=== PATIENT | female | born 1955 | race Caucasian/White ===

== ENCOUNTER 2020-11-10 07:17 | Day surgery (SDC) | payer MEDICARE, OTHER ==
[~2020-11-10] VITALS: Ht 162.6 cm; Wt 77.3 kg
--- NOTE | ~2020-11-10 | OP ---
PATIENT NAME: LIZZ FROST MEDICAL RECORD: [id number] :51 LOCATION:D.OPS ADMISSION DATE: SURGEON: MILKA ROMO MD DATE OF OPERATION: 11/10/2020 PROCEDURE: Colonoscopy. PREOPERATIVE DIAGNOSIS: The patient is here for a screening colonoscopy. MEDICATION: Propofol per anesthesia 300 mg. DESCRIPTION OF PROCEDURE: The patient was made comfortable in the left lateral position. The colonoscope was inserted through the rectum and advanced to the cecum, identified by the ileocecal valve and the appendiceal orifice. The quality of the prep was good. There was a 3-mm rectal polyp. This was removed with hot snare polypectomy. There were 2 additional small polyps removed with cold biopsy forceps in the distal sigmoid, with an additional small diminutive polyp removed with cold biopsy forceps. The patient tolerated the procedure well. There were no immediate complications. The prep was good. FINAL DIAGNOSES: Rectal and sigmoid polyps, outlined above, removed with hot snare polypectomy and cold biopsy forceps respectively. PLAN: Check histology results. Advance diet. Return to GI office. TRANSINT:[id number] Voice Confirmation ID: [id number] DOCUMENT ID: [id number] MILKA ROMO MD CC: [id number] DICTATION DATE: 11/10/20 0957 [employer] AGENT: 11/10/20 1008 [address] [place] [id number] [place] [id number]
[~2020-11-10 07:17] MED LIST: APLENZIN174 MG PO; CRESTOR40 MG PO; OMEPRAZOLE20 M1 PO; OS-CAL500 MG PO; OTEZLA; SANTYL30 GM; SYMBICORT 16010.2 GM INH; VITAMIN D5000 UNI2 PO
[2020-11-10 07:55] LABS: ANION GAP 14.9 mmol/L (8-16); BILIRUBIN - TOTAL 0.75 mg/dL (0.2-1.3); CALCIUM 9.2 mg/dL (8.5-10.1); CREATININE - SERUM 1.1 mg/dL (0.6-1.3); POTASSIUM - SERUM 3.9 mmol/L (3.5-5.1); PROTEIN - SERUM 7.6 g/dL (6.4-8.2)
[2020-11-10 07:58] LABS: BASOPHILS 0.4 % (0-2); EOSINOPHILS 2.6 % (0-7); HEMATOCRIT 40.6 % (36.0-48.0); HEMOGLOBIN 13.8 g/dL (12-16); LYMPHOCYTES 19.3 % (15-50); MCH 29.6 pg (26.0-34.0); MCHC 33.9 g/dL (31.0-37.0); MCV 87.2 fL (80.0-100.0); MEAN PLATELET VOLUME 8.4 fL (7.4-10.4); MONOCYTES 9.1 % (2-11); NEUTROPHILS 68.6 % (40-80); RBC 4.66 10x6/uL (4.00-5.40); RDW 13.6 % (11.5-14.5); WBC 8.6 10x3/uL (4.8-10.8)
[2020-11-10 08:03] LABS: PLATELET COUNT 249 10x3/uL (130-400)
[2020-11-10 08:26] VITALS: BP 154/93; Ht 162.6 cm; Wt 77.3 kg
--- NOTE | 2020-11-10 10:31 | NUR ---
AT BEDSIDE 1034 DC TEACHING COMPLETED, VERBALIZED UNDERSTANDING. PIV REMOVED, CATHETER INTACT. PT DRESSING, VOIDED IN BATHROOM 1055 PT DC'D VIA WC TO POV WITH ALL BELONGINGS AND DC PACKET WITH DRIVING
== END 2020-11-10 10:55 | disposition home or self-care (01) ==
LOC: D.OPS 07:17
PROVIDERS: ATTEND Internal Medicine Gastroenterology
DX: Z12.11 Encounter for screening for malignant neoplasm of colon (principal); K63.5 Polyp of colon; J44.9 Chronic obstructive pulmonary disease, unspecified